=== PATIENT | male | born 1955 | race Caucasian/White ===

== ENCOUNTER 2020-11-02 10:20 | Emergency (ER) | payer OTHER ==
[2020-11-02 12:39] LABS: BASOPHIL 0.3 % (0-2); EOSINOPHIL 1.4 % (0-7); HCT 48.8 % (42.0-52.0); HGB 15.9 g/dl (13.2-18.0); LYMPHOCYTE 12.6 % (15-48); MCH 31.1 pg (25.0-31.0); MCHC 32.6 g/dL (32.0-36.0); MCV 95.5 fL (78.0-100.0); MONOCYTE 10.1 % (0-12); MPV 9.1 fL (6.0-9.5); NEUTROPHIL 74.3 % (41-80); NRBC 0; PLT 295 K/uL (150-400); RBC 5.11 M/uL (4.70-6.00); RDW 13.5 % (11.5-14.0)
[2020-11-02 13:11] LABS: ALBUMIN 2.7 g/dL (3.4-5.0); BILIRUBIN - TOTAL 0.6 mg/dL (0.2-1.0); BUN/CREAT RATIO (CALC) 27.3 RATIO; CREATININE 0.77 mg/dL (0.67-1.17); GLOBULIN (CALCULATION) 4.3 g/dL; POTASSIUM 4.1 mmol/L (3.5-5.1)
== END 2020-11-02 18:09 | disposition home or self-care (01) ==
LOC: FER 10:20
PROVIDERS: Emergency Medicine
DX: U07.1 COVID-19 (principal); J12.82 Pneumonia due to coronavirus disease 2019; I10 Essential (primary) hypertension; R00.1 Bradycardia, unspecified; Z95.1 Presence of aortocoronary bypass graft
CPT/HCPCS: 36415; 36600; 71045; 71275; 80053; 82803; 84484; 85025; 85379; 93005; J7050; M0239; Q9967

== ENCOUNTER 2022-04-11 14:55 | Emergency (ER) | payer MEDICARE ==
[2022-04-11] MEDS ORDERED: AMOX TR-K CLV1 EAC4 PO (16:19)
== END 2022-04-11 16:30 | disposition home or self-care (01) ==
LOC: FER 14:55
DX: L03.115 Cellulitis of right lower limb (principal); I10 Essential (primary) hypertension
CPT/HCPCS: 93971